=== PATIENT | male | born 1945 | race Caucasian/White ===

== ENCOUNTER 2020-03-04 19:29 | Emergency (ER) | payer MEDICARE, SELFPAY ==
[2020-03-04 19:44] VITALS: BP 125/77; BP 178/72; PULSE 70; PULSE 71; RESP 16; TEMP 36.6; O2SAT 97; BMI 20.7
--- NOTE | 2020-03-04 20:30 | PC.NURSE ---
SCHEDULE ANALYST TO BEDSIDE. C-COLLAR REMAINS IN PLACE.
--- NOTE | 2020-03-04 20:41 | CT_ITS ---
EXAMINATION: CT HEAD WITHOUT CONTRAST CT CERVICAL SPINE WITHOUT CONTRAST CLINICAL INFORMATION: Fall. Head trauma. COMPARISON: CT head from 01/09/2020. TECHNIQUE: Contiguous axial imaging was performed from the skull base to vertex without intravenous administration of contrast. Contiguous axial imaging was performed from the upper chest through the skull base without intravenous administration of contrast. Coronal and sagittal reformats were obtained at the acquisition workstation. DLP: 926 mGy-cm FINDINGS: Head: There is no evidence of acute intracranial hemorrhage or edematous territorial infarction. 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 Scattered hypoattenuation in the periventricular and deep white matter are consistent with moderate microangiopathy. Marr-white matter differentiation is preserved. Proportional prominence of the ventricles and sulcal spaces. No evidence for obstructive hydrocephalus. No abnormal mass effect or midline shift. No extra-axial fluid collections. No acute soft tissue or osseous abnormalities. The mastoid air cells and paranasal sinuses are clear. Cervical Spine: The atlantooccipital and atlantoaxial articulations remain well aligned. Straightening of the normal cervical lordosis. Mild degenerative anterolisthesis of C2 on C3. Otherwise, there is anatomic alignment of the vertebral bodies and posterior elements. No evidence of acute fracture or subluxation. Advanced degenerative disc disease at C6-C7 with disc-osteophyte complex. Mild to moderate degenerative disc disease at all additional cervical levels. Moderate multilevel facet and uncovertebral joint arthropathy with associated osseous encroachment on the neural foramina at C3-C3 and C6-C7. Most notably, there is advanced facet joint arthropathy on the right at C2-C3. The vertebral body heights are largely maintained. There is no prevertebral soft tissue swelling. The thyroid gland and remaining cervical soft tissues are normal in appearance. The lung apices demonstrate no abnormalities. IMPRESSION: 1. No evidence of acute intracranial hemorrhage or edematous territorial infarction. 2. No fracture or traumatic subluxation of the cervical spine. 3. Moderate underlying microangiopathy and generalized cerebral volume loss. 4. 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
--- NOTE | 2020-03-04 20:41 | CT_ITS ---
EXAMINATION: CT ABDOMEN AND PELVIS WITHOUT CONTRAST CLINICAL INFORMATION: Fall with left hip pain COMPARISON: CT abdomen pelvis 03/10/2006 TECHNIQUE: Multidetector volumetric imaging was performed from the superior aspect of the liver through the pubic symphysis. Sagittal and coronal reformatted images were obtained on the technologist's workstation. This CT examination was performed using dose optimization techniques as appropriate, variously including the following: *Automated exposure control *Adjustment of mA and/or kV according to patient size (this includes techniques or standardized protocols for targeted exams where dose is matched to indication/reason for exam; i.e. extremities or head) *Use of iterative reconstruction technique DLP: 1328 mGy-cm FINDINGS: Visualized lung bases demonstrate mild dependent atelectasis. There is minimal pleural thickening of the left lung base. Subpleural nodular density of the left fissure likely represents a node. The liver demonstrates normal size, contour and attenuation. The gallbladder is decompressed. The pancreas, spleen and left adrenal gland are unremarkable. Stable small adenoma of the right adrenal gland. Symmetrically sized kidneys. There is a single 2 mm nonobstructing calculus within the lower pole of the right kidney. No left-sided renal calculi. No hydronephrosis bilaterally. Debris-filled stomach. Normal caliber loops of small and large bowel. Moderate colonic diverticulosis without CT evidence to suggest active diverticulitis. Aneurysmal dilatation of the abdominal aorta measuring up to 3.7 x 3.6 cm. The bladder is well-distended and normal in appearance. Central calcification within a prostate gland which measures 4.3 cm in transverse dimension. No inguinal lymphadenopathy. No gross free pelvic fluid. Moderate diffuse degenerative changes of the spine. Mildly displaced fractures of the left posterolateral 10th, 11th and 12th ribs. IMPRESSION: 1. Mildly displaced fractures of the left posterolateral 10th, 11th and 12th ribs. There is mild pleural thickening of the posterior left lung base with overlying atelectasis. 2. 2 mm nonobstructing right renal calculus. No hydronephrosis. 3. Moderate colonic diverticulosis without CT evidence to suggest active diverticulitis. 4. Abdominal aortic aneurysm measuring up to 3.7 cm in maximum dimension. 5. Stable small right adrenal adenoma.
--- NOTE | 2020-03-04 20:44 | ED_ITS ---
HPI - Fall General Chief Complaint: Fall Stated Complaint: LT SIDED ABD PAIN S/P FALL X 2 Time Seen by Provider: 03/04/20 20:41 Source: family Mode of arrival: ambulatory Limitations: altered mental status ( Dementia) History of Present Illness HPI Narrative: 74-year-old male presents for multiple falls today. He presents with his who is his primary oncology specialist. He had a fall this morning with loss of consciousness, EMS arrived to the home and patient was evaluated And was found to have no abnormal findings at that time. his 2nd fall today was in the shower, he did hit his head and landed on the left side of his ribcage. He did not lose consciousness. he is complaining of pain at this time, is a poor historian and entire history obtained from his . He is unable to follow simple directions, is able to answer yes or no questions. MD complaint: fall Onset (ago): minute(s) ( Just prior to arrival) Fall from: standing Fall witnessed: yes, by family Place fall occurred: home Loss of consciousness: none Prolonged down time: no Symptoms prior to fall: none Context: tripped/slipped Location of injury: head and chest Severity: severe Severity scale (1-10): 10 Quality: aching Associated symptoms (after fall): chest pain Related Data Previous Rx's Medication Instructions Recorded oxycodone 5 mg PO Q8H PRN #7 tab 03/05/20 Allergies Allergy/AdvReac Type Severity Reaction Status Date / Time Iodinated Contrast Media Allergy Unknown DIFFICULTY Verified 03/04/20 19:51 [IV Dye, Iodine Containing BREATHING Contrast ] IPV Allergy Unknown Swelling Verified 03/04/20 19:51 Review of Systems Review of Systems: Yes Unobtainable due to mental status PMFSH Past Medical History Attestation statement: The following information was validated with the patient. Source: obtained from family Medical History Alzheimer disease Hypertension Social History Social History Alcohol intake: never Smoking Status: Never smoker Smoked in Last 30 Days: No Use of substances other than those prescribed or required for medical reasons: No Advance Directives: No Advance Directives Information Provided: No Physical Exam Vital Signs: Vital Signs: Vital Signs Temp Pulse Resp BP Pulse Ox 03/05/20 02:00 98.0 F 68 12 145/75 H 98 03/05/20 00:59 61 20 131/70 99 03/05/20 00:57 20 03/04/20 23:25 56 18 136/73 97 03/04/20 23:24 18 03/04/20 19:44 97.9 F 71 16 125/77 97 Body Mass Index 20.7 Appearance: Alert. Oriented X 1. moderate distress. Head: Normal external exam. Normocephalic. Atraumatic. No Park signs noted. No raccoon eyes noted Eyes: PERRLA. EOMI. Conjunctiva and sclera normal. Eyelids normal. ENT: TM's Normal. Pharynx normal. Uvula midline. Moist mucous membranes. No trismus noted. No drooling noted. No muffled voice noted. Neck: Normal inspection. Neck supple. No adenopathy. Thyroid Normal. No meningeal signs. No neck mass noted. CVS: chest wall tenderness to palpation, Normal heart rate and rhythm. Heart sound normal. No murmurs noted. Pulses normal throughout. Respiratory: No respiratory distress. Pain on inspiration. Breath sounds normal. No wheezes/rales/rhonchi noted. Chest nontender. No accessory muscle usage noted or decreased air movement noted. Abdomen: Soft and nontender. Bowel sounds normal in all 4 quadrants. No distention noted. No organomegaly noted. No visible injury noted. pelvis is stable on palpation Back: No CVA tenderness. Full range of motion noted. Skin: Skin warm and dry. Normal skin color. Normal skin turgor. No rashes/lesions/lacerations noted. Extremities: No lower extremity edema. Extremities exhibit normal range of motion. Extremities nontender. Neuro: No motor deficit. No sensory deficit. Course Course Course Narrative: bedside fast is negative for acute findings, we will rule out acute findings to head and neck with CT scan, rule out fractured pelvis And acute abdomen with CT of abdomen and pelvis. EKG shows sinus David with right bundle branch block, troponins are negative, labs are otherwise unremarkable and are consistent with prior lab values. CT scan of the abdomen and pelvis show multiple rib fractures 10, 11 and 12. right renal calculus. CT scan of head and neck are negative for acute findings. Patient's pain is not managed very well with the 2 mg of IV morphine. There are significant concerns giving opioids to this patient as he is a significant fall risk and has dementia. Discussion with hospitalist at 11:23 p.m. regarding plan of care. Hospitalist does not feel that this patient meets criteria for admission, multiple discussions with regarding plan of care. is hesitant on taking patient home as pain is not well managed in the emergency department. We will give 2nd dose of morphine and p.o. oxycodone. does understand these medications increased risk for falls however we cannot discharge patient to home With uncontrolled pain. Second discussion with hospitalist, Dr. Mcknight in to evaluate patient. Hospitalist still feels that patient does not meet admission criteria. Detailed discussion with family, we will discharge home with oxycodone and have patient follow-up with primary care tomorrow morning. If pain is unmanaged, patient will return to the emergency department via EMS. Patient family appreciative of care, does understand the risks of narcotic use however feels that at this time it is appropriate. Family verbalized understanding of and agrees to plan of care discharge home. Procedures FAST Exam FAST Exam 1: Fluid in Morison's pouch: No Fluid in Splenorenal Junction: No Fluid around bladder, Transverse view: No Fluid around bladder, Sagittal view: No Fluid in Pericardial Sac: No Gross Wall Motion Abnormality: No Study normal for this patient: Yes Images saved for further review: No MDM - Fall Differential Diagnosis Differential diagnosis: Likely dislocation, fracture, compression fracture, concussion with loss of consciousness and concussion without loss of consciousness Medical Records Attestation: I reviewed the patient's medical records. Lab Data Attestation: I reviewed the patient's lab results. Result diagrams: 03/04/20 21:02 03/04/20 21:02 Labs: Lab Results 03/04/20 03/04/20 03/04/20 Range/Units 21:02 21:02 21:02 WBC 7.4 (4.8-10.8) X10*3/uL RBC 4.39 L (4.60-5.80) X10*6/uL Hgb 12.8 L (14.0-18.0) g/dl Hct 39.5 L (42-52) % MCV 90.0 (80-98) fL MCH 29.2 (27.0-33.0) pg MCHC 32.4 (31.0-36.0) g/dl RDW 13.6 (11.0-16.0) % Plt Count 175 (160-400) X10*3/uL MPV 9.5 (9.4-12.4) fL Immature Gran % (Auto) 0.3 (0.0-0.4) % Neut % (Auto) 77.0 H (45-73) % Lymph % (Auto) 12.9 L (20-40) % [place] % (Auto) 7.1 (2-11) % Eos % (Auto) 2.2 (0-4) % Baso % (Auto) 0.5 (0-2) % Lymph # (Auto) 1.0 L (1.2-4.9) X10*3/uL [place] # (Auto) 0.5 (0.1-1.2) X10*3/uL Eos # (Auto) 0.2 (0.0-0.4) X10*3/uL Baso # (Auto) 0.0 (0.0-0.2) X10*3/uL Abs Immat Gran (auto) 0.02 (0.00-0.03) X10*3/uL Absolute Neuts (auto) 5.7 (2.0-8.3) X10*3/uL Absolute Nucleated RBC 0.000 (0.0-0.012) X10*3/uL Nucleated RBC % (auto) 0.0 (0.0-0.2) /100WBC PT 12.0 (10.8-13.0) SEC INR 1.0 (0.9-1.1) APTT 33.4 (24.1-38.0) SEC Sodium 139 (135-145) mmol/L Potassium 4.0 (3.3-5.1) mmol/l Chloride 103 (96-108) mmol/L Carbon Dioxide 30 H (22-29) mmol/L Anion Gap 10 L (12-20) BUN 20 H (9-16) mg/dL Creatinine 0.97 (0.5-1.4) mg/dL Estim Creat Clear Calc 59.1 Estimated GFR > 60 Random Glucose 112 (60-115) mg/dL Calcium 9.3 (8.4-10.2) mg/dL Troponin I High Sens (<3.5-35.0) ng/L Urine Color Urine Appearance Urine pH (5.0-8.0) Ur Specific Clark (1.005-1.025) Urine Protein (NEG-TRACE) MG/DL Urine Glucose (UA) (NEG) MG/DL Urine Ketones (NEG) MG/DL Urine Blood (NEG) Urine Nitrite (NEG) Ur Leukocyte Esterase (NEG) 03/04/20 03/04/20 Range/Units 21:57 23:53 WBC (4.8-10.8) X10*3/uL RBC (4.60-5.80) X10*6/uL Hgb (14.0-18.0) g/dl Hct (42-52) % MCV (80-98) fL MCH (27.0-33.0) pg MCHC (31.0-36.0) g/dl RDW (11.0-16.0) % Plt Count (160-400) X10*3/uL MPV (9.4-12.4) fL Immature Gran % (Auto) (0.0-0.4) % Neut % (Auto) (45-73) % Lymph % (Auto) (20-40) % [place] % (Auto) (2-11) % Eos % (Auto) (0-4) % Baso % (Auto) (0-2) % Lymph # (Auto) (1.2-4.9) X10*3/uL [place] # (Auto) (0.1-1.2) X10*3/uL Eos # (Auto) (0.0-0.4) X10*3/uL Baso # (Auto) (0.0-0.2) X10*3/uL Abs Immat Gran (auto) (0.00-0.03) X10*3/uL Absolute Neuts (auto) (2.0-8.3) X10*3/uL Absolute Nucleated RBC (0.0-0.012) X10*3/uL Nucleated RBC % (auto) (0.0-0.2) /100WBC PT (10.8-13.0) SEC INR (0.9-1.1) APTT (24.1-38.0) SEC Sodium (135-145) mmol/L Potassium (3.3-5.1) mmol/l Chloride (96-108) mmol/L Carbon Dioxide (22-29) mmol/L Anion Gap (12-20) BUN (9-16) mg/dL Creatinine (0.5-1.4) mg/dL Estim Creat Clear Calc Estimated GFR Random Glucose (60-115) mg/dL Calcium (8.4-10.2) mg/dL Troponin I High Sens 5.1 (<3.5-35.0) ng/L Urine Color YELLOW Urine Appearance CLEAR Urine pH 6.5 (5.0-8.0) Ur Specific Clark 1.015 (1.005-1.025) Urine Protein NEG (NEG-TRACE) MG/DL Urine Glucose (UA) NEG (NEG) MG/DL Urine Ketones NEG (NEG) MG/DL Urine Blood NEG (NEG) Urine Nitrite NEG (NEG) Ur Leukocyte Esterase NEG (NEG) Discharge Plan Discharge Clinical Impression: Multiple rib fractures Qualifiers: Encounter type: initial encounter Fracture type: closed Laterality: left Qualified Code(s): S22.42XA - Multiple fractures of ribs, left side, initial encounter for closed fracture Fall Qualifiers: Encounter type: initial encounter Qualified Code(s): W19.XXXA - Unspecified fall, initial encounter Patient Disposition: Home, Self-Care Instructions: Rib Fracture (ED), Fall Prevention (ED) Additional Instructions: you were evaluated for fall. CT scan of head, neck are negative for acute findings. CT scan of abdomen and pelvis show multiple rib fractures to the left side. Please follow-up with primary care physician tomorrow for further care. We prescribed oxycodone for pain management. This medication is a narcotic and has high risk for addiction and abuse. This medication will increase risk for falls, cause dizziness, and constipation. Please use extra caution. While this medication should not be used in the elderly, I feel with his multiple rib fractures that he needs this medication for proper pain management. Please use Colace and or MiraLax daily to soften stools. Even if he is not on pain medication he should be using a stool softener. This will make bowel movements easier, as he does have multiple rib fractures it may be very difficult for him to uses core abdominal muscles. Thank you for choosing this emergency department for evaluation. Please follow-up with primary care physician as needed. Return to the emergency department for any new, concerning, or worsening symptoms. Prescriptions: New oxycodone 5 mg tablet 5 mg PO Q8H PRN (Reason: pain) Qty: 7 RF: 0 Interventions: ED Discharge Assessment Last Done: 03/05/20 03:03 Discharge Date/Time: 03/05/20 03:05
[2020-03-04 21:08] LABS: MANUAL DIFF FLAG NO
[2020-03-04 21:12] LABS: Basophils Percent Auto 0.5 % (0-2); Eosinophils Absolute Auto 0.2 X10*3/uL (0.0-0.4); Eosinophils Percent Auto 2.2 % (0-4); Hematocrit 39.5 % (42-52); Hemoglobin 12.8 g/dl (14.0-18.0); Imm Gran Abs Auto 0.02 X10*3/uL (0.00-0.03); Imm Gran Pct Auto 0.3 % (0.0-0.4); Lymphocytes Percent Auto 12.9 % (20-40); Mean Corpuscular HGB Conc 32.4 g/dl (31.0-36.0); Mean Corpuscular Hemoglobin 29.2 pg (27.0-33.0); Mean Platelet Volume 9.5 fL (9.4-12.4); Monocytes Absolute Auto 0.5 X10*3/uL (0.1-1.2); Monocytes Percent Auto 7.1 % (2-11); Neutrophils Absolute Auto 5.7 X10*3/uL (2.0-8.3); Platelet Count 175 X10*3/uL (160-400); Red Blood Count 4.39 X10*6/uL (4.60-5.80); Red Cell Distribution Width 13.6 % (11.0-16.0); White Blood Count 7.4 X10*3/uL (4.8-10.8)
[2020-03-04 21:21] LABS: Partial Thromboplastin Time 33.4 SEC (24.1-38.0)
--- NOTE | 2020-03-04 21:30 | PC.NURSE ---
PT TO CT SCAN
[2020-03-04 21:51] LABS: Anion Gap 10 (12-20); Blood Urea Nitrogen 20 mg/dL (9-16); Calcium 9.3 mg/dL (8.4-10.2); Carbon Dioxide 30 mmol/L (22-29); Chloride 103 mmol/L (96-108); Creatinine Clr Calc Pharmacy 59.1; Estimated Glomerular Filt Rate > 60; Glucose Random 112 mg/dL (60-115); Sodium 139 mmol/L (135-145)
[2020-03-04 22:10] LABS: Glucose Urine UA NEG (NEG); Leukocyte Esterase Urine NEG (NEG); Nitrite Urine NEG (NEG); PH 6.5 (5.0-8.0); Specific Gravity - Urine 1.015 (1.005-1.025); Urine Blood NEG (NEG); Urine Ketones NEG (NEG); Urine Protein NEG (NEG-TRACE)
[2020-03-04 22:12] LABS: Appearance Urine CLEAR; Color Urine YELLOW
--- NOTE | 2020-03-04 23:23 | ECG_ITS ---
Test Reason : S/P FALL Blood Pressure : / mmHG Vent. Rate : 058 BPM Atrial Rate : 058 BPM P-R Int : 144 ms QRS Dur : 100 ms QT Int : 444 ms P-R-T Axes : 076 072 076 degrees QTc Int : 435 ms Sinus bradycardia Incomplete right bundle branch block Borderline ECG When compared with ECG of 05-APR-2018 14:33, Premature supraventricular complexes are no longer Present Heart rate has decreased Referred By: Korin Blum Electronically Signed By:KALE GARZA MD
[2020-03-04 23:24] VITALS: RESP 18
[2020-03-04] MEDS: Morphine Sulfate 2 MG/ML CARTRIDGE IVPUSH (23:24)
[2020-03-04] MEDS: 0.9 % Sodium Chloride 1,000 ML 999 ML IVCONT (23:24)
[2020-03-04 23:25] VITALS: BP 136/73; PULSE 56; RESP 18; O2SAT 97
[2020-03-05 00:24] LABS: Troponin-I High Sensitivity 5.1 ng/L (<3.5-35.0)
--- NOTE | 2020-03-05 00:47 | PC.NURSE ---
PATIENT GRIMACING IN PAIN AT REST. PATIENT REPORTS WORSENING PAIN WITH MOVEMENT AND COUGHING. PATIENT ABLE TO AMBULATE TO RESTROOM WITH ASSIST OF ONE STAFF MEMBER. GUARDING LEFT SIDE.
--- NOTE | 2020-03-05 00:48 | XR_ITS ---
EXAMINATION: CHEST 1 VIEW CLINICAL INFORMATION: Pain after fall. COMPARISON: 01/09/2020. TECHNIQUE: An AP view of the chest is provided. FINDINGS: The cardiac silhouette is not enlarged. The mediastinal and hilar contours are unremarkable. There are neither pleural effusions nor pneumothoraces. There are no consolidations. The osseous structures are stable. IMPRESSION: No evidence for acute disease.
[2020-03-05 00:57] VITALS: RESP 20
[2020-03-05] MEDS: Morphine Sulfate 2 MG/ML CARTRIDGE IVPUSH (00:57)
[2020-03-05] MEDS: oxyCODONE HCl Immed Release 5 MG TABLET PO (00:57)
[2020-03-05 00:59] VITALS: BP 131/70; PULSE 61; RESP 20; O2SAT 99
--- NOTE | 2020-03-05 01:31 | P.EN_ITS ---
Event Note Event Note: 74 y/o male with PMHX of Dementia who presented from home brought by due to mechanical fall. Per history provided by the as patient has severe dementia, reports that for quite some time now patient has been having on and off episodes of fall where he tripps and falls. 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 EMS was on the scene, patient was evaluated and decided to not bring the patient to the ED. This evening had another episode while in the bathroom where he tripped again and fell on the floor. On presentation patient was found to be hemodynamically stable, imaging showing no acute intracranial pathology, chest imaging positive for mildly displaced rib fractures on the left side of the thorax. Medicine called for evaluation. Patient evaluated at the bedside, laying down in bed, comfortable in no acute di stress. ROS unable to be obtained given severe dementia. Physical exam positive for tenderness of the left thoracic side but at rest patient appears comfortable. rest of the exam unremarkable. Assessment/Plan: 1- Mechanical fall 2-Mildly displaced rib fractures Patient is medically stable to be discharged home on pain control as was discussed with ED attending. Will sign off on the case, please recall if necessary
[2020-03-05 02:00] VITALS: BP 145/75; PULSE 68; RESP 12; TEMP 36.7; O2SAT 98
== END 2020-03-05 03:05 | disposition home or self-care (01) ==
PROVIDERS: Nurse Practitioner Family; Emergency Provider Emergency Medicine Emergency Medical Services; PCP Hospitalist
DX: S22.42XA Multiple fractures of ribs, left side, initial encounter for closed fracture (principal); W18.2XXA Fall in (into) shower or empty bathtub, initial encounter; Z91.81 History of falling; I10 Essential (primary) hypertension; G30.9 Alzheimer's disease, unspecified; F02.80 Dementia in other diseases classified elsewhere, unspecified severity, without behavioral disturbance, psychotic disturbance, mood disturbance, and anxiety; Y93.E1 Activity, personal bathing and showering; Y92.012 Bathroom of single-family (private) house as the place of occurrence of the external cause; Y99.9 Unspecified external cause status
CPT/HCPCS: 36415; 70450; 71045; 72125; 74176; 80048; 81003; 84484; 85025; 85027; 85610; 85730; 93005; 96361; 96374; 96376; 99284; J2270